=== PATIENT | male | born 1975 | race Caucasian/White ===

== ENCOUNTER 2022-12-03 12:33 | Day surgery (SDC) | payer OTHER ==
[~2022-12-03] VITALS: Ht 185.4 cm; Wt 126.4 kg
[~2022-12-03 12:33] MED LIST: ATOR-2 PO; BUME1TAB6 PO; CARV6.2534 PO; CITA-108 PO; CLOP75TA32 PO; ERGO500054 PO; FAMO20 PO; HYDR-4527 PO; HYDR25TA82 PO; NICO-703 TP; NITR0.4T50 SL; OMEP20CA12 PO; POTA-92 PO; PROPOFOL 1% 20 ML VIAL IVP ONE; SACU1TAB PO; SODIUM CHLORIDE 0.9% 1,000 ML ONE; SPIR-37 PO; TOPI-255 PO; TORS100T16 PO
[2022-12-03] MEDS ORDERED: MIDAZOLAM HCL 2 MG/2 ML VIAL IVP ONE (12:34)
[2022-12-03] MEDS ORDERED: LACT1CAP79 PO (12:59)
[2022-12-03] MEDS ORDERED: DAPA10TA PO (12:59)
[2022-12-03] MEDS ORDERED: SODIUM CHLORIDE 0.9% 1,000 ML IV ONE (13:00)
[2022-12-03] MEDS ORDERED: ASPI-1450 PO (13:10)
[2022-12-03] MEDS ORDERED: LACT1CAP58 PO (13:10)
== END 2022-12-03 16:00 | disposition home or self-care (01) ==
LOC: SURGERY 12:33
PROVIDERS: ATTEND Internal Medicine Gastroenterology
DX: K29.70 Gastritis, unspecified, without bleeding (principal); K44.9 Diaphragmatic hernia without obstruction or gangrene; I25.2 Old myocardial infarction; E78.5 Hyperlipidemia, unspecified; G47.30 Sleep apnea, unspecified; I50.9 Heart failure, unspecified; I11.0 Hypertensive heart disease with heart failure; Z79.899 Other long term (current) drug therapy; I25.10 Atherosclerotic heart disease of native coronary artery without angina pectoris; Z98.890 Other specified postprocedural states; Z87.891 Personal history of nicotine dependence; E78.00 Pure hypercholesterolemia, unspecified; F41.9 Anxiety disorder, unspecified; I42.9 Cardiomyopathy, unspecified; G47.33 Obstructive sleep apnea (adult) (pediatric); F32.A Depression, unspecified
CPT/HCPCS: 43239; 93005; C1769; J2704; J2250; J7030; 88305; 88312; 88313